=== PATIENT | female | born 1955 | race Caucasian/White ===

== ENCOUNTER 2019-12-31 13:38 | Outpatient (CLI) | payer OTHER | END 2019-12-31 23:59 | disposition home or self-care (01) | LOC: STAR 13:38 | PROVIDERS: ATTEND Thoracic Surgery (Cardiothoracic Vascular Surgery) | DX: Z01.818 Encounter for other preprocedural examination (principal); Q44.6 Cystic disease of liver; I48.20 Chronic atrial fibrillation, unspecified | CPT/HCPCS: 93005 ==